=== PATIENT | male | born 1970 | race Caucasian/White ===

== ENCOUNTER 2020-02-08 15:11 | Outpatient (CLI) | payer OTHER, SELFPAY ==
[2020-02-09 19:10] LABS: SARS-CoV-2 RNA PCR Negative
== END 2020-02-08 15:12 | disposition home or self-care (01) ==
PROVIDERS: PCP Physician Assistant; Visit Provider Physician Assistant
DX: Z20.828 Contact with and (suspected) exposure to other viral communicable diseases (principal)
CPT/HCPCS: 87635; C9803; U0003